=== PATIENT | male | born 1960 | race African-American/Black ===

== ENCOUNTER 2017-03-06 15:27 | Inpatient (IN) | payer OTHER ==
[2017-03-06 15:42] VITALS: BMI 20.9
[2017-03-06] MEDS ORDERED: guaiFENesin/D-METHORPHAN HB 10 ML UNIT-DOSE CUPS PO PRN (17:48)
[2017-03-06] MEDS ORDERED: MENTHOL/PHENOL 1 EACH UD MM PRN (17:48)
[2017-03-06] MEDS ORDERED: P-EPHED 60MG/TRIPROLIDI 2.5MG TABLET PO PRN (17:48)
[2017-03-06] MEDS ORDERED: hydrOXYzine PAMOATE 50 MG CAPSULE (FP) PO PRN (17:48)
[2017-03-06] MEDS ORDERED: NICOTINE POLACRILEX 2 MG GUM BC PRN (17:48)
[2017-03-06] MEDS ORDERED: chlordiazePOXIDE HCL 25 MG CAPSULE PO PRN (17:48)
[2017-03-06] MEDS ORDERED: LOPERAMIDE HCL 2 MG CAPSULE PO PRN (17:48)
[2017-03-06] MEDS ORDERED: IBUPROFEN 400 MG TABLET (FP) PO PRN (17:48)
[2017-03-06] MEDS ORDERED: MAGNESIUM CITRATE 300 ML BOTTLE PO PRN (17:48)
[2017-03-06] MEDS ORDERED: ACETAMINOPHEN 325 MG TABLET (FP) PO PRN (17:48)
[2017-03-06] MEDS ORDERED: MAGNESIUM HYDROX 2400MG/30ML ORAL SUSPENSION 30 ML CUP PO PRN (17:48)
[2017-03-06] MEDS ORDERED: MAG HYDROX/AL HYDROX/SIMETH 30 ML UNIT-DOSE CUP PO PRN (17:48)
--- NOTE | 2017-03-06 17:48 | HP ---
CIWA Score - CIWA Score Nausea/Vomitin Muscle Tremors: 3 Anxiety: 3 Agitation: 3 Paroxysmal Sweats: 3 Orientation: 0-Oriented Tacttile Disturbances: 2-Mild Itch/Numbness/Burn Auditory Disturbances: 0-None Visual Disturbances: 0-None Headache: 2-Mild CIWA-Ar Total Score: 19 [facility] Chief Complaint: alcohol withdrawal sx Allergies/Adverse Reactions: Allergies Allergy/AdvReac Type Severity Reaction Status Date / Time Fish Containing Products Allergy Severe Hives Verified 03/06/17 17:14 Tetracyclines Allergy Severe Difficulty Verified 03/06/17 17:14 Breathing History of Present Illness: 56 yo m with hchroni calcoholism, [facility] sober [facility] [place] [facility] ED where he reicived benzodiazepines for alhol inpatien tdetoxification, last drink yesterday. H/o alcohol withdrawal seizures in past , years ago. PMHX GERD, uvula ca, removed, 2004, now with very quiet voice, h/o suicide attempt in past no SI at this time, genital herpes, pschiatric illness on medication s - depresssion, anxiety and insomnia reported noh /o OD . c/o thirst and dehydration Exam Limitations: No Limitations - Ebola screening Have you traveled outside of the country in the last 21 days: No Have you had contact with anyone from an Ebola affected area: No Have you been sick,other than usual withdrawal symptoms: No Do you have a fever: No - Review of Systems Constitutional: Chills, Diaphoresis, Malaise, Night Sweats, Unintentional Wgt. Loss EENT: reports: No Symptoms Reported Respiratory: reports: No Symptoms reported Cardiac: reports: No Symptoms Reported GI: reports: Diarrhea, Nausea, Poor Appetite, Poor Fluid Intake, Vomiting, Abdominal cramping : reports: No Symptoms Reported Musculoskeletal: reports: No Symptoms Reported Integumentary: reports: Flushing, Sweating Endocrine: reports: No Symptoms Reported Hematology: reports: No Symptoms Reported Psychiatric: reports: Judgement Intact, Mood/Affect Appropiate, Orientated x3, Anxious, Depressed Other Systems: Reviewed and Negative Patient History - Patient Medical History Hx Anemia: No Hx Asthma: No Hx Chronic Obstructive Pulmonary Disease (COPD): No Hx Cancer: Yes (sly, 2005 removed) Hx Cardiac Disorders: No Hx Congestive Heart Failure: No Hx Hypertension: No Hx Hypercholesterolemia: No Hx Pacemaker: No HX Cerebrovascular Accident: No Hx Seizures: Yes (etoh related last in 1996) Hx Dementia: No Hx Diabetes: No Hx Gastrointestinal Disorders: Yes (GERD) Hx Liver Disease: No Hx Genitourinary Disorders: No Hx Sexually Transmitted Disorders: No Hx Renal Disease (ESRD): No Hx Thyroid Disease: No Hx Human Immunodeficiency Virus (HIV): No Hx Hepatitis C: No Hx Depression: Yes Hx Suicide Attempt: Yes (tried to overdose as a teen., no SI at thist ie) Hx Bipolar Disorder: Yes Hx Schizophrenia: Yes - Patient Surgical History Past Surgical History: Yes Other Surgical History: Pt states he had his uvula removed in 2004 - PPD History Previous Implant?: Yes Documented Results: Positive w/o proof Implanted On Prior [facility] Admission?: No PPD to be Administered?: No - Reproductive History Patient is a Female of Child Bearing Age (11 -55 yrs old): No Patient : No - Smoking Cessation Smoking history: Current every day smoker Have you smoked in the past 12 months: Yes Aproximately how many cigarettes per day: 3 Hx Chewing Tobacco Use: No Initiated information on smoking cessation: Yes 'Breaking Loose' booklet given: 03/06/17 - Substance & Tx. History Hx Alcohol Use: Yes Hx Substance Use: No Substance Use Type: Alcohol Hx Substance Use Treatment: Yes ([facility]) - Substances Abused Alcohol Route: Oral Frequency: Daily Amount used: 1 pint vodka Age of first use: 8 Date of Last Use: 03/05/17 Family Disease History - Family Disease History Family Disease History: Other: Father (alcholism), Mother (alcoholism) Admission Physical Exam [facility] - Vital Signs Vital Signs: Vital Signs - 24 hr 03/06/17 15:41 Temperature 98.8 F Pulse Rate 112 H Respiratory 18 Rate Blood Pressure 146/96 - Physical General Appearance: Yes: Nourished, Appropriately Dressed, Disheveled, Mild Distress, Thin, Tremorous, Irritable, Sweating, Anxious HEENTM: Yes: EOMI, Hearing grossly Normal, Normocephalic, Tm's normal, Muffled/ Hoarse Voice, Other (missing uvula, post op from Cancer, speaks very softly) Respiratory: Yes: Within Normal Limits, Chest Non-Tender, Lungs Clear, Normal Breath Sounds, No Respiratory Distress, No Accessory Muscle Use Neck: Yes: Within Normal Limits, No masses,lesions,Nodules, Supple, Trachea in good position Breast: Yes: Breast Exam Deferred Cardiology: Yes: Within Normal Limits, Regular Rhythm, Regular Rate, S1, S2 Abdominal: Yes: Within Normal Limits, Normal Bowel Sounds, Non Tender, Flat, Soft Genitourinary: Yes: Within Normal Limits Back: Yes: Within Normal Limits, Normal Inspection Musculoskeletal: Yes: Within Normal Limits, full range of Motion, Gait Steady, Pelvis Stable Extremities: Yes: Normal Capillary Refill, Normal Range of Motion, Non-Tender, Tremors Neurological: Yes: business development specialist II-XII NML intact, Fully Oriented, Alert, Motor Strength 5/5, Normal Response, Depressed Affect Integumentary: Yes: Normal Color, Warm, Diaphoresis, Moist Lymphatic: Yes: Within Normal Limits - Addiitonal Findings: withdrawal sx - Diagnostic (1) Alcohol dependence with uncomplicated withdrawal Current Visit: Yes Status: Acute (2) Nicotine dependence Current Visit: Yes Status: Acute (3) Schizoaffective disorder Current Visit: Yes Status: Acute (4) Dehydration Current Visit: Yes Status: Acute (5) Genital herpes Current Visit: Yes Status: Acute (6) Cancer of uvula Current Visit: Yes Status: Acute (7) Seizures Current Visit: Yes Status: Acute Cleared for Admission [facility] - Detox or Rehab [facility] Level of Care: Medically Managed Detox Regimen/Protocol: Librium [facility] Breath Alcohol Content Breath Alcohol Content: 0 Urine Drug Screen - Results Drug Screen Negative: No Urine Drug Screen Results: BZO-Benzodiazepines
[2017-03-06] MEDS ORDERED: chlordiazePOXIDE HCL 25 MG CAPSULE PO ONE (19:00)
[2017-03-06] MEDS: NICOTINE 14 MG/24 HOURS TOPICAL PATCH TD SCH (20:38)
[2017-03-06] MEDS: FLUTICASONE PROP 0.05% 16 GM NASAL SPRAY NS SCH (20:39)
[2017-03-06] MEDS: PANTOPRAZOLE 40 MG TABLET (FP) PO SCH (20:39)
[2017-03-06] MEDS: chlordiazePOXIDE HCL 25 MG CAPSULE PO SCH (22:12)
[2017-03-06] MEDS: THIAMINE HCL 100 MG TABLET (FP) PO SCH (22:12)
[2017-03-06 23:34] LABS: URINE APPEARANCE CLEAR; URINE BILIRUBIN NEGATIVE (NEGATIVE); URINE BLOOD NEGATIVE (NEGATIVE); URINE COLOR LTYELLOW; URINE GLUCOSE (UA) NEGATIVE (NEGATIVE); URINE KETONE NEGATIVE (NEGATIVE); URINE NITRITE NEGATIVE (NEGATIVE); URINE PROTEIN NEGATIVE (NEGATIVE); URINE UROBILINOGEN NEGATIVE mg/dL (0.2-1.0)
[2017-03-07] MEDS: chlordiazePOXIDE HCL 25 MG CAPSULE PO SCH ×5 (05:14→22:20)
[2017-03-07] MEDS: PANTOPRAZOLE 40 MG TABLET (FP) PO SCH (10:11)
[2017-03-07] MEDS: FLUTICASONE PROP 0.05% 16 GM NASAL SPRAY NS SCH (10:11)
[2017-03-07] MEDS: PRENATAL VITAMINS W/ FOLIC ACID TABLET (FP) PO SCH (10:11)
[2017-03-07] MEDS: NICOTINE 14 MG/24 HOURS TOPICAL PATCH TD SCH (10:13)
--- NOTE | 2017-03-07 10:23 | EKG ---
Test Reason : Blood Pressure : / mmHG Vent. Rate : 094 BPM Atrial Rate : 094 BPM P-R Int : 136 ms QRS Dur : 078 ms QT Int : 338 ms P-R-T Axes : 082 074 073 degrees QTc Int : 422 ms NORMAL SINUS RHYTHM RIGHT ATRIAL ENLARGEMENT PULMONARY DISEASE PATTERN VOLTAGE CRITERIA FOR LEFT VENTRICULAR HYPERTROPHY ABNORMAL ECG NO PREVIOUS ECGS AVAILABLE Confirmed by ROYAL ROCA MD ([id number]) on 03/07/2017 10:23:32 AM Referred By: Confirmed By:ROYAL ROCA MD
--- NOTE | 2017-03-07 10:32 | EKG ---
Test Reason : Blood Pressure : / mmHG Vent. Rate : 072 BPM Atrial Rate : 072 BPM P-R Int : 140 ms QRS Dur : 086 ms QT Int : 430 ms P-R-T Axes : 082 075 077 degrees QTc Int : 470 ms NORMAL SINUS RHYTHM VOLTAGE CRITERIA FOR LEFT VENTRICULAR HYPERTROPHY ABNORMAL ECG WHEN COMPARED WITH ECG OF 06-MAR-2017 21:42, NO SIGNIFICANT CHANGE WAS FOUND Confirmed by CHANELLE GUNDERSON, ROYAL ([id number]) on 03/07/2017 10:32:26 AM Referred By: Confirmed By:ROYAL ROCA MD
[2017-03-07 10:58] LABS: URINE LEUK ESTERASE Negative (NEGATIVE)
[2017-03-07 11:06] LABS: MCH 31.2 pg (25.7-33.7); MCHC 32.7 g/dl (32.0-35.9); MEAN CELL VOLUME 95.3 fl (80-96); MEAN PLT VOLUME 7.6 fl (7.5-11.1); PLATELET COUNT 156 K/MM3 (134-434); RDW 18.5 % (11.9-15.9); WHITE BLOOD COUNT 3.5 K/mm3 (4.0-10.0)
[2017-03-07 11:17] LABS: ALBUMIN 3.3 g/dl (3.4-5.0); ALK PHOS 134 U/L (45-117); ANION GAP 8 (8-16); BILIRUBIN,TOTAL 1.1 mg/dL (0.2-1.0); CALCIUM 9.2 mg/dL (8.5-10.1); CO2 29 mmol/L (21-32); CREATININE 0.8 mg/dL (0.7-1.3); GLUCOSE,RANDOM 85 mg/dL (74-106); SGOT/AST 66 U/L (15-37); SGPT/ALT 50 U/L (12-78); TOT PROT 6.4 g/dl (6.4-8.2)
--- NOTE | 2017-03-07 11:46 | CONSULT ---
[facility] Psychiatric Consult - Data Date of interview: 03/07/17 Admission source: [facility] Identifying data: Pt. is a 56 year old male, who is single and unemployed. This is patient's first admission to [facility]. Pt. admitted to detox for alcohol and nicotine dependence. Substance Abuse History: Alcohol- First used at 8 years of age. Usage: 1-2 pints daily. Smoking- First used at 8 years of age. Usage- 3-4 cigarettes per day. Medical History: Hypertension, Seizures (alcohol related), GERD. Uvula removed in 2004. Psychiatric History: Pt. self reports a diagnosis of Depression, Bipolar disorder and schizophrenia. States he was once admitted to [facility]( 40 years ago) for observation but was never admitted to an inpatient psychiatric unit. Pt. reports one suicide attempt at the age of 10 in which he attempted to overdose on an unlimited amount of vodkia. Pt. states he has an outpatient psychiatrist named, Dr. Kirsty Keith. Pt. unable to provide psychiatrist number at this time. Pt. reports taking the medications zyprexa, rememron and benadryl, but stated to mortgage or loan underwriter, " I do not want to take those medications because i would like to detox." Pt. currently denies SI, HI and auditory and visual hallucinations. Physical/Sexual Abuse/Trauma History: Pt. denies Mental Status Exam - Mental Status Exam Alert and Oriented to: Time, Place, Person Cognitive Function: Fair Patient Appearance: Well Groomed Mood: Withdrawn Affect: Flat Patient Behavior: Sedated Speech Pattern: Slurred Voice Loudness: Mildly Soft/Quiet Thought Process: Goal Oriented Thought Disorder: Not Present Hallucinations: Denies Suicidal Ideation: Denies Homicidal Ideation: Denies Insight/Judgement: Fair Sleep: Fair Appetite: Poor (States he has not been eating due to detoxing.) Muscle strength/Tone: Normal Gait/Station: Normal Psychiatric Findings - Problem List ([place] 1, 2,3) (1) Alcohol dependence with uncomplicated withdrawal Current Visit: Yes Status: Acute (2) Bipolar disorder Current Visit: Yes Status: Acute Comment: self reports diagnosis. (3) Schizophrenia Current Visit: Yes Status: Acute Comment: Self reports diagnosis. (4) Major depressive disorder Current Visit: Yes Status: Acute Comment: self reports major depressive disorder (5) Nicotine dependence Current Visit: Yes Status: Acute (6) Substance induced mood disorder Current Visit: Yes Status: Acute - Initial Treatment Plan Initial Treatment Plan: Psychoeducation provided. Detoxification in progress. Pt. refused psychotrophic medications.
--- NOTE | 2017-03-07 13:07 | PN ---
[facility] CIWA - CIWA Score Nausea/Vomitin-No Nausea/No Vomiting Muscle Tremors: 4-Moderate,w/Arms Extend Anxiety: 2 Agitation: 3 Paroxysmal Sweats: 3 Orientation: 0-Oriented Tacttile Disturbances: 2-Mild Itch/Numbness/Burn Auditory Disturbances: 2-Mild Harshness/Frighten Visual Disturbances: 2-Mild Sensitivity Headache: 0-None Present CIWA-Ar Total Score: 18 S Progress Note (SOAP) Subjective: Tremors, Body Aches, Sweating, Fatigue, Stomach Cramping. Objective: PT. A & O X 3, OBSERVED AMBULATING ON UNIT. NO ACUTE DISTRESS. PT. DENIES CHEST PAIN. 03/07/17 13:04 Vital Signs Temperature 98.1 F 03/07/17 13:03 Pulse Rate 100 H 03/07/17 13:03 Respiratory Rate 18 03/07/17 13:03 Blood Pressure 150/103 03/07/17 13:03 O2 Sat by Pulse Oximetry (%) Laboratory Tests 03/06/17 03/07/17 03/07/17 22:25 07:00 07:00 WBC 3.5 L RBC 4.13 Hgb 12.9 Hct 39.4 MCV 95.3 MCH 31.2 MCHC 32.7 RDW 18.5 H Plt Count 156 MPV 7.6 Sodium 140 Potassium 3.5 Chloride 103 Carbon Dioxide 29 Anion Gap 8 BUN 5 L Creatinine 0.8 Creat Clearance w eGFR > 60 Random Glucose 85 Calcium 9.2 Total Bilirubin 1.1 H AST 66 H ALT 50 Alkaline Phosphatase 134 H Total Protein 6.4 Albumin 3.3 L Urine Color Ltyellow Urine Appearance Clear Urine pH 9.0 H Ur Specific [place] 1.010 Urine Protein Negative Urine Glucose (UA) Negative Urine Ketones Negative Urine Blood Negative Urine Nitrite Negative Urine Bilirubin Negative Urine Urobilinogen Negative LABS NOTED. HCV AB, RPR RESULTS PENDING. RESULTS OF CXR NOTED. 03/07/17 13:05 03/07/17 13:07 Assessment: 03/07/17 13:05 WITHDRAWAL SYMPTOMS. Plan: CONTINUE DETOX. AMLODIPINE, 5 MG PO DAILY (PATIENT WAS PRESCRIBED IN RECENT PAST BY OUTSIDE MEDICAL PROVIDER). INCREASE DAILY PO FLUID INTAKE.
[2017-03-07 13:22] LABS: SICKLE CELL SCREEN NEGATIVE (NEGATIVE)
[2017-03-07] MEDS: amLODIPine BESYLATE 5 MG TABLET (FP) PO SCH (14:14)
--- NOTE | 2017-03-07 21:30 | PN ---
[facility] Progress Note Note: received nurse call bp 143/96 had librium 50mg recommend monitoring bp two hours after librium administration
--- NOTE | 2017-03-07 21:54 | PN ---
[facility] Progress Note Note: received nurse call bp 131/94
[2017-03-07] MEDS: THIAMINE HCL 100 MG TABLET (FP) PO SCH (22:20)
[2017-03-08] MEDS: chlordiazePOXIDE HCL 25 MG CAPSULE PO SCH ×3 (05:28→17:06)
[2017-03-08] MEDS: NICOTINE 14 MG/24 HOURS TOPICAL PATCH TD SCH (10:11)
[2017-03-08] MEDS: FLUTICASONE PROP 0.05% 16 GM NASAL SPRAY NS SCH (10:11)
[2017-03-08] MEDS: PANTOPRAZOLE 40 MG TABLET (FP) PO SCH (10:11)
[2017-03-08] MEDS: PRENATAL VITAMINS W/ FOLIC ACID TABLET (FP) PO SCH (10:11)
[2017-03-08] MEDS: amLODIPine BESYLATE 5 MG TABLET (FP) PO SCH (10:11)
--- NOTE | 2017-03-08 15:34 | PN ---
[facility] CIWA - CIWA Score Nausea/Vomitin-No Nausea/No Vomiting Muscle Tremors: 3 Anxiety: 4-Mod. Anxious/Guarded Agitation: 2 Paroxysmal Sweats: 3 Orientation: 0-Oriented Tacttile Disturbances: 2-Mild Itch/Numbness/Burn Auditory Disturbances: 1-Very Mild Visual Disturbances: 1-Very Mild Sensitivity Headache: 0-None Present CIWA-Ar Total Score: 16 B[facility] Progress Note (SOAP) Subjective: Fatigue, Tremors, Sweating, Interrupted Sleep. Objective: PT. A & O X 3, OBSERVED AMBULATING ON UNIT. NO ACUTE DISTRESS. 03/08/17 15:33 Vital Signs Temperature 98 F 03/08/17 13:06 Pulse Rate 109 H 03/08/17 13:06 Respiratory Rate 20 03/08/17 13:06 Blood Pressure 117/87 03/08/17 13:06 O2 Sat by Pulse Oximetry (%) Laboratory Tests 03/06/17 03/06/17 03/07/17 07:00 22:25 07:00 WBC 3.5 L RBC 4.13 Hgb 12.9 Hct 39.4 MCV 95.3 MCH 31.2 MCHC 32.7 RDW 18.5 H Plt Count 156 MPV 7.6 Sickle Cell Screen Negative Sodium Potassium Chloride Carbon Dioxide Anion Gap BUN Creatinine Creat Clearance w eGFR Random Glucose Calcium Total Bilirubin AST ALT Alkaline Phosphatase Total Protein Albumin Urine Color Ltyellow Urine Appearance Clear Urine pH 9.0 H Ur Specific [place] 1.010 Urine Protein Negative Urine Glucose (UA) Negative Urine Ketones Negative Urine Blood Negative Urine Nitrite Negative Urine Bilirubin Negative Urine Urobilinogen Negative RPR Titer Hepatitis C Antibody <0.1 03/07/17 03/07/17 07:00 07:00 WBC RBC Hgb Hct MCV MCH MCHC RDW Plt Count MPV Sickle Cell Screen Sodium 140 Potassium 3.5 Chloride 103 Carbon Dioxide 29 Anion Gap 8 BUN 5 L Creatinine 0.8 Creat Clearance w eGFR > 60 Random Glucose 85 Calcium 9.2 Total Bilirubin 1.1 H AST 66 H ALT 50 Alkaline Phosphatase 134 H Total Protein 6.4 Albumin 3.3 L Urine Color Urine Appearance Urine pH Ur Specific [place] Urine Protein Urine Glucose (UA) Urine Ketones Urine Blood Urine Nitrite Urine Bilirubin Urine Urobilinogen RPR Titer Nonreactive Hepatitis C Antibody LABS NOTED. Assessment: 03/08/17 15:33 WITHDRAWAL SYMPTOMS. Plan: CONTINUE DETOX.
[2017-03-08] MEDS: THIAMINE HCL 100 MG TABLET (FP) PO SCH (22:30)
[2017-03-08] MEDS: chlordiazePOXIDE 5 MG CAPSULE PO SCH (22:30)
[2017-03-09] MEDS: chlordiazePOXIDE 5 MG CAPSULE PO SCH ×3 (05:46→17:44)
[2017-03-09] MEDS: NICOTINE 14 MG/24 HOURS TOPICAL PATCH TD SCH (10:27)
[2017-03-09] MEDS: PRENATAL VITAMINS W/ FOLIC ACID TABLET (FP) PO SCH (10:27)
[2017-03-09] MEDS: FLUTICASONE PROP 0.05% 16 GM NASAL SPRAY NS SCH (10:27)
[2017-03-09] MEDS: PANTOPRAZOLE 40 MG TABLET (FP) PO SCH (10:27)
[2017-03-09] MEDS: amLODIPine BESYLATE 5 MG TABLET (FP) PO SCH (10:27)
--- NOTE | 2017-03-09 14:57 | PN ---
[facility] Progress Note (SOAP) Subjective: Body Aches, Anxious, Fatigue. Objective: PT. A & O X 3, OBSERVED AMBULATING ON UNIT. NO ACUTE DISTRESS. 03/09/17 14:56 Vital Signs Temperature 96.6 F L 03/09/17 13:17 Pulse Rate 78 03/09/17 13:17 Respiratory Rate 18 03/09/17 13:17 Blood Pressure 139/94 03/09/17 13:17 O2 Sat by Pulse Oximetry (%) Laboratory Tests 03/06/17 03/06/17 03/07/17 07:00 22:25 07:00 WBC 3.5 L RBC 4.13 Hgb 12.9 Hct 39.4 MCV 95.3 MCH 31.2 MCHC 32.7 RDW 18.5 H Plt Count 156 MPV 7.6 Sickle Cell Screen Negative Sodium Potassium Chloride Carbon Dioxide Anion Gap BUN Creatinine Creat Clearance w eGFR Random Glucose Calcium Total Bilirubin AST ALT Alkaline Phosphatase Total Protein Albumin Urine Color Ltyellow Urine Appearance Clear Urine pH 9.0 H Ur Specific [place] 1.010 Urine Protein Negative Urine Glucose (UA) Negative Urine Ketones Negative Urine Blood Negative Urine Nitrite Negative Urine Bilirubin Negative Urine Urobilinogen Negative RPR Titer Hepatitis C Antibody <0.1 03/07/17 03/07/17 07:00 07:00 WBC RBC Hgb Hct MCV MCH MCHC RDW Plt Count MPV Sickle Cell Screen Sodium 140 Potassium 3.5 Chloride 103 Carbon Dioxide 29 Anion Gap 8 BUN 5 L Creatinine 0.8 Creat Clearance w eGFR > 60 Random Glucose 85 Calcium 9.2 Total Bilirubin 1.1 H AST 66 H ALT 50 Alkaline Phosphatase 134 H Total Protein 6.4 Albumin 3.3 L Urine Color Urine Appearance Urine pH Ur Specific [place] Urine Protein Urine Glucose (UA) Urine Ketones Urine Blood Urine Nitrite Urine Bilirubin Urine Urobilinogen RPR Titer Nonreactive Hepatitis C Antibody LABS NOTED. Assessment: 03/09/17 14:56 WITHDRAWAL SYMPTOMS. Plan: CONTINUE DETOX.
[2017-03-09] MEDS: THIAMINE HCL 100 MG TABLET (FP) PO SCH (22:30)
[2017-03-09] MEDS: chlordiazePOXIDE HCL 10 MG CAPSULE PO SCH (23:30)
[2017-03-10] MEDS: chlordiazePOXIDE HCL 10 MG CAPSULE PO SCH (05:31)
[2017-03-10 06:14] VITALS: BP 120/73; PULSE 68; TEMP 97.2
--- NOTE | 2017-03-10 18:15 | DS ---
[facility] Detox Discharge Summary Admission Date: 03/06/17 Discharge Date: 03/10/17 - History Present History: Alcohol Dependence Additional Comments: PATIENT GOING TO [facility] FOR AFTERCARE. PATIENT WAS DISCHARGED FROM DETOX UNIT IN STABLE MEDICAL CONDITION. Pertinent Past History: History of Cancer of Uvula, History of Surgery on Uvula, Nicotine Dependence, Dehydration, Depression, Bipolar Disorder, Schizophrenia, History of Seizures ( ETOH-Related), History of Genital Herpes. - Physical Exam Results Vital Signs: Vital Signs Temperature 97.2 F L 03/10/17 06:13 Pulse Rate 68 03/10/17 06:13 Respiratory Rate 16 03/10/17 06:13 Blood Pressure 120/73 03/10/17 06:13 O2 Sat by Pulse Oximetry (%) Pertinent Admission Physical Exam Findings: WITHDRAWAL SYMPTOMS. Laboratory Tests 03/06/17 03/06/17 03/07/17 07:00 22:25 07:00 WBC 3.5 L RBC 4.13 Hgb 12.9 Hct 39.4 MCV 95.3 MCH 31.2 MCHC 32.7 RDW 18.5 H Plt Count 156 MPV 7.6 Sickle Cell Screen Negative Sodium Potassium Chloride Carbon Dioxide Anion Gap BUN Creatinine Creat Clearance w eGFR Random Glucose Calcium Total Bilirubin AST ALT Alkaline Phosphatase Total Protein Albumin Urine Color Ltyellow Urine Appearance Clear Urine pH 9.0 H Ur Specific [place] 1.010 Urine Protein Negative Urine Glucose (UA) Negative Urine Ketones Negative Urine Blood Negative Urine Nitrite Negative Urine Bilirubin Negative Urine Urobilinogen Negative RPR Titer Hepatitis C Antibody <0.1 03/07/17 03/07/17 07:00 07:00 WBC RBC Hgb Hct MCV MCH MCHC RDW Plt Count MPV Sickle Cell Screen Sodium 140 Potassium 3.5 Chloride 103 Carbon Dioxide 29 Anion Gap 8 BUN 5 L Creatinine 0.8 Creat Clearance w eGFR > 60 Random Glucose 85 Calcium 9.2 Total Bilirubin 1.1 H AST 66 H ALT 50 Alkaline Phosphatase 134 H Total Protein 6.4 Albumin 3.3 L Urine Color Urine Appearance Urine pH Ur Specific [place] Urine Protein Urine Glucose (UA) Urine Ketones Urine Blood Urine Nitrite Urine Bilirubin Urine Urobilinogen RPR Titer Nonreactive Hepatitis C Antibody LABS NOTED. - Treatment Hospital Course: Detox Protocol Followed, Detoxed Safely, Responded well, Discharged Condition Good Patient has Accepted a Rehab Referral to: PATIENT IS GOING TO [facility] FOR AFTERCARE. - Medication Discharge Medications: Ambulatory Orders Mirtazapine [Remeron -] 45 mg PO HS 03/06/17 Multivitamin [One Daily] 1 tab PO DAILY 03/06/17 Olanzapine [Zyprexa -] 5 mg PO DAILY 03/06/17 Omeprazole 20 mg PO DAILY 03/06/17 Prilosec 03/06/17 - Diagnosis (1) Alcohol dependence with uncomplicated withdrawal Status: Acute (2) Dehydration Status: Acute (3) Bipolar disorder Status: Chronic Qualifiers: Active/Remission status: remission status unspecified Qualified Code(s): F31.9 - Bipolar disorder, unspecified (4) Cancer of uvula Status: Chronic (5) Genital herpes Status: Acute Qualifiers: Herpes simplex infection site: unspecified Qualified Code(s): A60.00 - Herpesviral infection of urogenital system, unspecified (6) Major depressive disorder Status: Chronic Qualifiers: Major depression recurrence: recurrent Active/Remission status: remission status unspecified Qualified Code(s): F33.9 - Major depressive disorder, recurrent, unspecified (7) Nicotine dependence Status: Acute Qualifiers: Nicotine product type: cigarettes Substance use status: uncomplicated Qualified Code(s): F17.210 - Nicotine dependence, cigarettes, uncomplicated (8) Schizoaffective disorder Status: Acute Qualifiers: Schizoaffective disorder type: unspecified Qualified Code(s): F25.9 - Schizoaffective disorder, unspecified (9) Schizophrenia Status: Chronic Qualifiers: Schizophrenia type: unspecified Qualified Code(s): F20.9 - Schizophrenia, unspecified (10) Seizures Status: Chronic (11) Substance induced mood disorder Status: Acute - AMA Did Patient Leave Against Medical Advice: No
== END 2017-03-10 08:45 | disposition home or self-care (01) | DRG 775 ==
LOC: YASAS 15:27 → Y3N 18:22
PROVIDERS: ADMIT Internal Medicine; ATTEND Internal Medicine
PROC: HZ2ZZZZ Detoxification Services for Substance Abuse Treatment (ICD-10-PCS; principal; 2017-03-06)
DX: F10.230 Alcohol dependence with withdrawal, uncomplicated (principal); F17.210 Nicotine dependence, cigarettes, uncomplicated; F25.9 Schizoaffective disorder, unspecified; F33.9 Major depressive disorder, recurrent, unspecified; F19.24 Other psychoactive substance dependence with psychoactive substance-induced mood disorder; A60.00 Herpesviral infection of urogenital system, unspecified; Z85.89 Personal history of malignant neoplasm of other organs and systems; Z86.69 Personal history of other diseases of the nervous system and sense organs; Z91.5 Personal history of self-harm
CPT/HCPCS: 36415; 71020-TC; 80053; 81003; 85027; 85660; 86593; 86803; 93005; 93010